=== PATIENT | female | born 1940 | race Caucasian/White ===

== ENCOUNTER 2016-11-04 07:30 | Outpatient (RCR) | payer MEDICARE, BC ==
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
[~2016-11-04 07:30] MED LIST: ALEN70TA47 PO; TRM50T PO
== END 2016-11-16 12:48 | disposition home or self-care (01) ==
LOC: PT 07:30
PROVIDERS: ATTEND Orthopaedic Surgery
DX: Z96.651 Presence of right artificial knee joint (principal)
CPT/HCPCS: 97016; 97110; 97112; 97140; 97761; G8978; G8979; G8980